=== PATIENT | male | born 1995 | race African-American/Black ===

== ENCOUNTER 2017-08-16 16:17 | Emergency (ER) | payer OTHER, SELFPAY ==
[2017-08-16 16:18] VITALS: BP 135/75; PULSE 102; RESP 16; TEMP 37.6; O2SAT 95; BMI 24.5
[2017-08-16 16:29] VITALS: BP 143/80; PULSE 83; RESP 15; O2SAT 98
--- NOTE | 2017-08-16 16:33 | RAD_ITS ---
STUDY: X-RAY CHEST REASON FOR EXAM: Male, 22 years old. Chest pain TECHNIQUE: Frontal and lateral views of the chest. COMPARISON: 12/01/2014. FINDINGS: The lungs are clear and expanded. There is no demonstrated pleural abnormality. Normal size heart. Normal mediastinum and kristian. Normal visualized pulmonary arteries. Normal visualized aortic arch and descending thoracic aorta. Normal visualized thoracic spine. Normal visualized ribs, clavicles, and shoulders. There is no demonstrated abnormality of the visualized soft tissue structures of the upper abdomen. RAD/Chest PA and Lateral IMPRESSION: Normal x-ray examination of the chest. Electronically Signed: Ulices De La Fuente MD at 17:00 EDT , Service support ,
--- NOTE | 2017-08-16 16:33 | EKG12_ITS ---
Test Reason : CP Blood Pressure : / mmHG Vent. Rate : 089 BPM Atrial Rate : 089 BPM P-R Int : 150 ms QRS Dur : 088 ms QT Int : 350 ms P-R-T Axes : 039 044 014 degrees QTc Int : 425 ms Normal sinus rhythm T wave abnormality, consider anterior ischemia Abnormal ECG Confirmed by SEMAJ LIZARRAGA, TAMMY ([id number]), editor trade journal BETTE WILSON ([id number]) on 08/20/2017 2:00:16 PM Referred By: ARISTIDES Confirmed By:TAMMY CHA MD
--- NOTE | 2017-08-16 16:37 | NURSING ---
CALLED [facility] TO GET OLD EKG OF PATIENT
--- NOTE | 2017-08-16 16:38 | ED.VISSUMM ---
- ER Visit Summary Date of Service: 08/16/17 Chief Complaint: [] Chest pain History of Present Illness: The patient is a 22 M [] complaining of midsternal chest pain without radiation beginning prior to arrival. Patient reports he had similar symptoms beginning yesterday. He reports 2 days ago he was seen at an urgent care and treated with prednisone and loratadine for seasonal allergies. He feels that his discomfort may be manifestation of a side effect or allergy to the medication. Does report a previous history of seasonal allergies. 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 He denies shortness of breath or pleuritic chest pain. Denies drugs/alcohol use. No other complaints at this time. Asked if he had been previously evaluated for cardiomyopathy or a big heart. He says he has in the past been evaluated and had an abnormal EKG however was cleared to play sports. Physical Examination: [] Afebrile, vital signs stable. 22-year-old male no acute distress. Cardiovascular exam is regular rate and rhythm. Lungs clear to auscultation. Abdomen is soft and nontender. No lower extremity edema. Test Results: [] X-ray 2 views: Negative. Labs: CBC, BMP, troponin negative. EKG: Normal sinus rhythm with a rate of 89 with flipped T waves in the inferior and leads V3, V4, V5. Emergency Department Course and Treatment: [] It took approximately 2 hours to get the old EKGs from [facility] in comparison to the EKG that we took today. In comparison they appear unchanged which makes the patient's presentation was concerning. Chest x-ray was negative and patient reports a previously negative workup for hypertrophic cardiomyopathy. Patient was given GI cocktail with lidocaine and aspirin and on serial exam had improvement of symptoms. He was amenable to discharge and close follow-up. He was instructed to return if symptoms should recur/worsen. Treatment Plan: [] Follow-up with primary care physician. Disposition: [] Discharge, stable. Impression: [] Chest pain, unknown etiology This note was generated with [employer] dictation software. It may contain incorrect words, spelling, and punctuation that were not noted in review of the chart prior to signing ED Disposition - Plan for ED Patient: Chief Complaint: Chest Other Referrals: NOT,DEFINED [Primary Care Provider] -
--- NOTE | 2017-08-16 16:39 | NURSING ---
NO OLD EKGS
[2017-08-16] MEDS: Aspirin 81 MG TAB.CHEW 324 MG PO (16:56)
[2017-08-16 17:00] VITALS: BP 142/79; PULSE 94
[2017-08-16 17:04] LABS: Anion Gap 8 (5-15); BUN 13 mg/dL (7-18); BUN/Creat Ratio 11.3 RATIO (10-20); Calcium,Total 8.5 mg/dL (8.5-10.1); Chloride 106 mmol/L (98-107); Creatinine, Serum 1.15 mg/dL (0.70-1.30); EST Glomerular Filtration Rate 85 mL/min (>60); Est Glom Filt Rate - Afr Amer 103 mL/min (>60); Estimated Creatinine Clearance 114.83 ml/min; Glucose 100 mg/dL (74-106); Potassium 3.4 mmol/L (3.5-5.1); Sodium Level 139 mmol/L (136-145)
[2017-08-16 17:05] VITALS: BP 127/63; PULSE 93
[2017-08-16 17:05] LABS: Absolute Neutrophil Count 7.8 X10^3/uL (2.0-7.7); Basophil# 0.01 X10^3/uL; Basophil% 0.1 % (0-1); Eosinophils% 0.9 % (0-5); Hematocrit 40.9 % (40-54); Hemoglobin 13.5 g/dl (13.0-16.5); Lymphocyte % 15.4 % (19-41); Mean Corpuscular Hgb 28.5 pg (27.0-32.0); Mean Corpuscular Volume 86.5 fL (80-94); Mean Platelet Vol. 11.3 fl (6.2-12.0); Monocyte# 1.43 X10^3/uL; Neutrophil # 7.79 X10^3/uL (2.7-7.7); Neutrophil % 70.5 % (47-70); Platelet Count 191 K/mm3 (150-450); RBC Distribution Width CV 13.1 % (11.6-14.6); RBC Distribution Width SD 41.8 fl (35.1-43.9); Red Blood Count 4.73 M/mm3 (4.6-6.2)
[2017-08-16 17:08] LABS: POSITIVE COUNT NO; POSITIVE DIFFERENTIAL NO; POSITIVE MORPHOLOGY NO
[2017-08-16 17:10] VITALS: BP 125/60; PULSE 85
--- NOTE | 2017-08-16 17:41 | NURSING ---
[id number] FAXED RELEASE TO [facility]. TALKED TO JARON IN MR. FAX NUMBER [phone]
--- NOTE | 2017-08-16 18:12 | NURSING ---
CALLED [facility]. TALKED TO TREMAYNE. SHE WILL FAX EKG FOR US
--- NOTE | 2017-08-16 18:21 | ED.DEP ---
ED Disposition - Plan for ED Patient: Disposition: Home or Assisted Living Chief Complaint: Chest Other Instructions: ED Chest Pain Atypical Unkn Cause Referrals: NOT,DEFINED [Primary Care Provider] -
[2017-08-16 18:58] VITALS: BP 122/84; PULSE 79; RESP 18; O2SAT 100
--- NOTE | 2017-08-16 18:58 | ED.RN ---
THIS NURSE REVIEWED D/C INSTRUCTIONS WITH PT. PT VERBALIZED UNDERSTANDING OF INSTRUCTIONS. IV D/C. IV CATHETER INTACT. PT TOLERATED WELL. PT DENIES FURTHER NEEDS OR QUESTIONS AT THIS TIME
== END 2017-08-16 19:00 | disposition home or self-care (01) ==
PROVIDERS: Emergency Provider Emergency Medicine; Family Provider Pediatrics
DX: R07.89 Other chest pain (principal); J45.909 Unspecified asthma, uncomplicated
CPT/HCPCS: 71046; 80048; 84484; 85025; 93005; 99285; A4216